=== PATIENT | female | born 2000 | race Caucasian/White ===

== ENCOUNTER 2021-02-03 20:39 | Outpatient (CLI) | payer OTHER ==
[2021-02-03] MEDS ORDERED: PRENATAL TABLE1 EAC1 PO (21:15)
== END 2021-02-04 13:47 | disposition home or self-care (01) ==
LOC: OBS/DEL 20:39
PROVIDERS: ATTEND Specialist
DX: O46.8X2 Other antepartum hemorrhage, second trimester (principal); Z3A.23 23 weeks gestation of pregnancy

== ENCOUNTER 2021-02-07 21:14 | Outpatient (CLI) | payer OTHER ==
[~2021-02-07 21:14] MED LIST: PRENATAL TABLE1 EAC1 PO
[2021-02-07] MEDS ORDERED: FOLIC ACID0.8 M1 PO (21:35)
[2021-02-08] MEDS ORDERED: AMOX1TAB5 PO (14:46)
== END 2021-02-08 16:40 | disposition home or self-care (01) ==
LOC: OBS/DEL 21:14
PROVIDERS: ATTEND Specialist
DX: O23.42 Unspecified infection of urinary tract in pregnancy, second trimester (principal); Z3A.24 24 weeks gestation of pregnancy

== ENCOUNTER 2021-03-09 08:08 | Outpatient (CLI) | payer OTHER ==
[~2021-03-09 08:08] MED LIST changes: +AMOX1TAB5 PO; +FOLIC ACID0.8 M1 PO
== END 2021-03-09 08:24 | disposition home or self-care (01) ==
LOC: SONOGRAMA 08:08 → MAMO-SONO 08:15 → SONOGRAMA 08:24
PROVIDERS: ATTEND Urology
DX: N20.1 Calculus of ureter (principal)

== ENCOUNTER 2021-04-20 01:46 | Outpatient (CLI) | payer OTHER ==
[2021-04-20] MEDS ORDERED: VITAMIN C500 M6 PO (08:17)
[2021-04-20] MEDS ORDERED: ZITHROMAX500 MG PO (08:17)
== END 2021-04-20 12:58 | disposition home or self-care (01) ==
LOC: OBS/DEL 01:46
PROVIDERS: ATTEND Specialist
DX: O26.893 Other specified pregnancy related conditions, third trimester (principal); N20.0 Calculus of kidney; O98.513 Other viral diseases complicating pregnancy, third trimester; U07.1 COVID-19; B96.0 Mycoplasma pneumoniae [M. pneumoniae] as the cause of diseases classified elsewhere; Z3A.34 34 weeks gestation of pregnancy

== ENCOUNTER 2021-05-12 13:15 | Inpatient (IN) | payer OTHER ==
[~2021-05-12] VITALS: Ht 154.9 cm; Wt 76.7 kg
[~2021-05-12 13:15] MED LIST changes: +VITAMIN C500 M6 PO; +ZITHROMAX500 MG PO
[2021-05-28] MEDS ORDERED: TAMSULOSIN HCL0.4 MG (08:04)
[2021-05-28] MEDS ORDERED: PRENATAL VITAM1 EAC7 (08:04)
[2021-05-29] MEDS ORDERED: ACETAMINOPHEN325 M1 PO (12:53)
== END 2021-05-29 14:33 | disposition home or self-care (01) | DRG 807 ==
LOC: SURH 05-13 13:15 → LDR 05-27 05:51 → OB/GYN 05-28 14:25 → O/R 05-28 19:27 → OB/GYN 05-28 19:28
PROVIDERS: ADMIT Specialist; ATTEND Specialist
PROC: 10E0XZZ Delivery of Products of Conception, External Approach (ICD-10-PCS; principal; 2021-05-27)
PROC: 0UQGXZZ Repair Vagina, External Approach (ICD-10-PCS; 2021-05-27)
PROC: 4A1HXFZ Monitoring of Products of Conception, Cardiac Rhythm, External Approach (ICD-10-PCS; 2021-05-27)
PROC: 10907ZC Drainage of Amniotic Fluid, Therapeutic from Products of Conception, Via Natural or Artificial Opening (ICD-10-PCS; 2021-05-27)
DX: O71.4 Obstetric high vaginal laceration alone (principal); Z37.0 Single live birth; Z86.16 Personal history of COVID-19; Z3A.40 40 weeks gestation of pregnancy

== ENCOUNTER → 2021-07-05 | Outpatient (CLI) | payer OTHER ==
[~2021-07-05] MED LIST changes: +ACETAMINOPHEN325 M1 PO; +PRENATAL VITAM1 EAC7; +TAMSULOSIN HCL0.4 MG
== END | disposition home or self-care (01) ==
LOC: RAD 10:30
PROVIDERS: ATTEND Urology
DX: N20.1 Calculus of ureter (principal)

== ENCOUNTER 2021-07-14 08:13 | Outpatient (CLI) | payer OTHER | END 2021-07-14 08:31 | disposition home or self-care (01) | LOC: TOM 08:13 | PROVIDERS: ATTEND Urology | DX: N20.1 Calculus of ureter (principal) ==